=== PATIENT | male | born 2000 | race Hispanic/Latino ===

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

== ENCOUNTER 2022-11-21 07:22 | Emergency (ER) | payer SELFPAY ==
[~2022-11-21] VITALS: Ht 182.9 cm; Wt 80.0 kg
[2022-11-21 07:29] VITALS: BP 128/77
[2022-11-21 08:00] VITALS: BP 132/73
[2022-11-21 08:30] VITALS: BP 127/58
[2022-11-21 09:00] VITALS: BP 126/82
[2022-11-21 10:00] VITALS: BP 121/81
[2022-11-21 10:20] VITALS: BP 121/81
== END 2022-11-21 10:20 | disposition home or self-care (01) | DRG 556 ==
LOC: ED 07:22
DX: M25.572 Pain in left ankle and joints of left foot (principal)

== ENCOUNTER 2023-04-03 12:38 | Emergency (ER) | payer SELFPAY ==
[~2023-04-03] VITALS: Ht 182.9 cm; Wt 80.0 kg
[2023-04-03 12:52] VITALS: BP 121/73
[2023-04-03 13:00] VITALS: BP 121/77
[2023-04-03 13:15] VITALS: BP 116/82
[2023-04-03 13:30] VITALS: BP 130/72
[2023-04-03] MEDS ORDERED: ZYRTEC10 MG PO (14:54)
[2023-04-03] MEDS ORDERED: KEFLEX500 MG PO (14:54)
[2023-04-03] MEDS ORDERED: PREDNISONE20 MG PO (14:54)
[2023-04-03 15:38] VITALS: BP 130/72
== END 2023-04-03 15:40 | disposition home or self-care (01) | DRG 918 ==
LOC: ED 12:38
DX: T63.461A Toxic effect of venom of wasps, accidental (unintentional), initial encounter (principal); R22.0 Localized swelling, mass and lump, head